=== PATIENT | female | born 1975 | race African-American/Black ===

== ENCOUNTER 2017-06-08 08:08 | Outpatient (CLI) | payer OTHER ==
--- NOTE | 2017-06-11 08:13 | Mammography Report ---
BILATERAL DIGITAL SCREENING MAMMOGRAM WITH CAD:06/08/17 00:00:00 CLINICAL: Baseline screening. COMPARISON:None. FINDINGS: The breasts are heterogeneously dense, which may obscure small masses. Rightupper outer calcifications and lower and inner asymmetries require additional imaging. The left breast is negative. IMPRESSION: Right calcifications and asymmetries requiring further workup. BI-RADS CATEGORY: 0 -- Needs Additional Imaging RECOMMENDATION: Recall for right spot lateralmedial and spot magnification views and right breast ultrasound if needed. ACR BI-RADS MAMMOGRAPHIC CODES: 0 = Needs additional imaging evaluation; 1 = Negative; 2 = Benign; 3 = Probably benign; 4 = Suspicious; 5 = Malignant; 6 = Known biopsy-proven malignancy COMMENT: 1. Dense breast tissue, i.e., adenosis, fibrocystic changes, etc., may obscure an underlying neoplasm. 2. Approximately 10% of cancers are not detected with mammography. 3. A negative mammography report should not delay biopsy if a clinically suspicious mass is present.
== END 2017-06-08 08:09 | disposition home or self-care (01) ==
LOC: SPVWC 08:08
PROVIDERS: ATTEND Obstetrics & Gynecology
DX: Z12.31 Encounter for screening mammogram for malignant neoplasm of breast (principal)
CPT/HCPCS: 77067

== ENCOUNTER 2017-06-19 08:15 | Outpatient (CLI) | payer OTHER ==
--- NOTE | 2017-06-19 09:44 | Ultrasound Report ---
RIGHT DIGITAL DIAGNOSTIC MAMMOGRAM with CAD and RIGHT BREAST ULTRASOUND: 06/19/17 08:30:00 CLINICAL: Recalled for asymmetries and calcifications. COMPARISON:06/08/17creening FINDINGS: Lateralmedial and spot magnification LMand CC views were performed. Satisfactory effacement of asymmetries on the spot images. Scattered outer amorphous and punctate calcifications without layering on the lateral view. Ultrasound of the right breast (including all four quadrants and the retroareolar area) was performed and demonstrated normal fibroglandular and fatty structures. No mass, cyst or shadowing. IMPRESSION: Probably benign right calcifications . BI-RADS CATEGORY: 3-Probably Benign RECOMMENDATION: Six month followup right magnification views. ACR BI-RADS MAMMOGRAPHIC CODES: 0 = Needs additional imaging evaluation; 1 = Negative; 2 = Benign; 3 = Probably benign; 4 = Suspicious; 5 = Malignant; 6 = Known biopsy-proven malignancy COMMENT: 1. Dense breast tissue, i.e., adenosis, fibrocystic changes, etc., may obscure an underlying neoplasm. 2. Approximately 10% of cancers are not detected with mammography. 3. A negative mammography report should not delay biopsy if a clinically suspicious mass is present. COMMENT: Patient follow-up letters are generated via our [employer] application.
== END 2017-06-19 08:16 | disposition home or self-care (01) ==
LOC: SPVWC 08:15
PROVIDERS: ATTEND Obstetrics & Gynecology
DX: R92.1 Mammographic calcification found on diagnostic imaging of breast (principal)

== ENCOUNTER 2018-06-11 10:08 | Outpatient (CLI) | payer BC ==
--- NOTE | 2018-06-11 11:57 | Mammography Report ---
BILATERAL DIGITAL SCREENING MAMMOGRAM with CAD: 06/11/18 10:08:00 CLINICAL: Routine screening. COMPARISON:06/08/17 and 06/19/17 FINDINGS: The breasts are heterogeneously dense, which may obscure small masses. A left inner posterior asymmetry on the CC view requires additional imaging.No architectural distortion or suspicious calcifications.The right breast is negative. IMPRESSION: Left asymmetry requiring further workup. BI-RADS CATEGORY: 0 -- Additional Imaging Evaluation Required RECOMMENDATION: Recall for left lateralmedial and spot magnification CC views and left breast ultrasound if needed. ACR BI-RADS MAMMOGRAPHIC CODES: 0 = Needs additional imaging evaluation; 1 = Negative; 2 = Benign; 3 = Probably benign; 4 = Suspicious; 5 = Malignant; 6 = Known biopsy-proven malignancy COMMENT: 1. Dense breast tissue, i.e., adenosis, fibrocystic changes, etc., may obscure an underlying neoplasm. 2. Approximately 10% of cancers are not detected with mammography. 3. A negative mammography report should not delay biopsy if a clinically suspicious mass is present. COMMENT: Patient follow-up letters are generated via our [employer] application.
== END 2018-06-11 10:09 | disposition home or self-care (01) ==
LOC: SPVWC 10:08
PROVIDERS: ATTEND Physician Assistant
DX: Z12.31 Encounter for screening mammogram for malignant neoplasm of breast (principal)
CPT/HCPCS: 77067